=== PATIENT | female | born 1950 | race Caucasian/White ===

== ENCOUNTER 2020-10-19 17:12 | Emergency (ER) | payer OTHER, MEDICAID ==
[~2020-10-19] VITALS: Ht 172.7 cm; Wt 90.7 kg
[~2020-10-19 17:12] MED LIST: ASCO-339 PO; IBUP-1969 PO; LEVO125T8 PO; LOP600 PO; LORA10TA7 PO; MOM PO; OMEG500C3 PO; TOLT4CAP14 PO; VALS160T2 PO
[2020-10-19 17:19] VITALS: BP_SYST 160
[2020-10-19 18:06] LABS: BASOPHILS # (AUTO) 0.1 K/uL (0.0-0.2); BASOPHILS % (AUTO) 0.8 % (0.0-2.0); EOSINOPHILS # (AUTO) 0.3 K/uL (0.0-0.4); EOSINOPHILS % (AUTO) 2.8 % (0.0-4.0); HEMATOCRIT 40.1 % (36-48); HEMOGLOBIN 13.4 g/dL (12.0-16.0); LYMPHOCYTES # (AUTO) 1.7 K/uL (1.0-5.5); MEAN CORPUSCULAR HEMOGLOBIN 30 pg (27-31); MEAN CORPUSCULAR HGB CONC 34 % (32-36); MEAN CORPUSCULAR VOLUME 90 fL (79.0-98.0); MONOCYTES # (AUTO) 0.8 K/uL (0.0-1.0); MONOCYTES % (AUTO) 7.1 % (1.7-9.3); NEUTROPHILS % (AUTO) 73.3 % (40.0-70.0); PLATELET COUNT (AUTO) 297 K/uL (130-430); RED BLOOD CELL COUNT(AUTO) 4.47 MIL/uL (4.2-6.2); RED CELL DISTRIBUTION WIDTH 13.1 % (9.0-15.0); WHITE BLOOD COUNT (AUTO) 10.9 K/uL (4.8-10.8)
[2020-10-19 18:26] LABS: CREATININE 0.95 mg/dL (0.55-1.30); POTASSIUM 4.2 mmol/L (3.5-5.1)
[2020-10-19 18:32] LABS: ALBUMIN 3.7 g/dL (3.4-4.8); TOTAL BILIRUBIN 0.2 mg/dL (0.0-1.0)
[2020-10-19] MEDS ORDERED: KETOROLAC TROMETHAMINE 30 MG VIAL IM ONE (19:15)
[2020-10-19 19:55] LABS: BILIRUBIN,URINE NEGATIVE (NEGATIVE); BLOOD, URINE NEGATIVE (NEGATIVE); COLOR,URINE YELLOW (YELLOW); GLUCOSE,URINE NEGATIVE (NEGATIVE); KETONES,URINE NEGATIVE (NEGATIVE); LEUKOCYTE ESTERASE ,URINE 2+ (NEGATIVE); NITRITE, URINE NEGATIVE (NEGATIVE); PH,URINE 6.5 (5.0-8.0); PROTEIN URINE NEGATIVE (NEGATIVE); UROBILINOGEN,URINE 0.2 (0.2-1.0)
[2020-10-19 20:05] LABS: CLARITY/URINE HAZY (CLEAR)
[2020-10-19 20:06] LABS: BACTERIA,URINE MANY /HPF (None Seen); CALCIUM OXALATE CRYSTALS,UR None Seen /HPF (None Seen); CALCIUM PHOSPHATE CRYSTALS,UR None Seen /HPF (None Seen); COARSE GRANULAR CASTS,URINE None Seen /LPF (None Seen); FINE GRANULAR CASTS,URINE None Seen /LPF (None Seen); HYALINE CASTS, URINE None Seen /LPF (None Seen); MUCUS,URINE None Seen /LPF (None Seen); OTHER CASTS, URINE None Seen /LPF (None Seen); OTHER CRYSTALS,URINE None Seen /HPF (None Seen); RBC,URINE 0-3 /HPF (0-3); TRICHOMONAS,URINE None Seen /HPF (None Seen); TRIPLE PHOSPHATE CRYSTAL,UR None Seen /HPF (None Seen); URIC ACID CRYSTALS,URINE None Seen /HPF (None Seen); URINE AMORPHOUS PHOSPHATES None Seen /HPF (None Seen); URINE AMORPHOUS URATE None Seen /HPF (None Seen); WAXY CASTS,URINE None Seen /LPF (None Seen); YEAST,URINE None Seen /HPF (None Seen)
[2020-10-19] MEDS ORDERED: CIPROFLOXACIN HCL 500 MG TABLET PO ONE (20:15)
[2020-10-19] MEDS ORDERED: CIPR500T5 PO (20:41)
[2020-10-19] MEDS ORDERED: IBUP-1969 PO (20:41)
[2020-10-19 23:00] VITALS: BP_SYST 111
== END 2020-10-19 23:00 | disposition home or self-care (01) ==
LOC: SED 17:12
DX: S79.912A Unspecified injury of left hip, initial encounter (principal); N39.0 Urinary tract infection, site not specified; R53.1 Weakness; Z88.0 Allergy status to penicillin; Z88.8 Allergy status to other drugs, medicaments and biological substances; Z79.899 Other long term (current) drug therapy; W18.39XA Other fall on same level, initial encounter; Y93.89 Activity, other specified; Y92.89 Other specified places as the place of occurrence of the external cause; Y99.8 Other external cause status
CPT/HCPCS: 36415; 71045; 72170; 73552; 80053; 81000; 82550; 84484; 85025; 87086; 93005; 96372; 99285; J1885; J7030

== ENCOUNTER 2022-08-09 10:09 | Inpatient (IN) | payer OTHER, MEDICAID ==
[~2022-08-09] VITALS: Ht 154.9 cm; Wt 103.9 kg
[~2022-08-09 10:09] MED LIST changes: +CIPR500T5 PO; -TOLT4CAP14 PO; +TOLT4CAP28 PO
[2022-08-09 10:28] VITALS: BP_SYST 230
[2022-08-09 11:23] LABS: BILIRUBIN,URINE NEGATIVE (NEGATIVE); CLARITY/URINE CLEAR (CLEAR); COLOR,URINE YELLOW (YELLOW); GLUCOSE,URINE NEGATIVE (NEGATIVE); KETONES,URINE NEGATIVE (NEGATIVE); LEUKOCYTE ESTERASE ,URINE 1+ (NEGATIVE); NITRITE, URINE NEGATIVE (NEGATIVE); PH,URINE 6.5 (5.0-8.0); PROTEIN URINE 2+ (NEGATIVE); UROBILINOGEN,URINE 0.2 (0.2-1.0)
[2022-08-09 11:30] LABS: BASOPHILS % (AUTO) 0.3 % (0.0-2.0); EOSINOPHILS # (AUTO) 0.3 K/uL (0.0-0.4); HEMATOCRIT 39.9 % (36-48); HEMOGLOBIN 12.9 g/dL (12.0-16.0); LYMPHOCYTES # (AUTO) 1.5 K/uL (1.0-5.5); LYMPHOCYTES % (AUTO) 12.5 % (20.5-51.5); MEAN CORPUSCULAR HEMOGLOBIN 29 pg (27-31); MEAN CORPUSCULAR HGB CONC 32 % (32-36); MEAN CORPUSCULAR VOLUME 90 fL (79.0-98.0); MONOCYTES # (AUTO) 0.8 K/uL (0.0-1.0); MONOCYTES % (AUTO) 7.2 % (1.7-9.3); PLATELET COUNT (AUTO) 320 K/uL (130-430); RED BLOOD CELL COUNT(AUTO) 4.43 MIL/uL (4.2-6.2); RED CELL DISTRIBUTION WIDTH 15.5 % (9.0-15.0); WHITE BLOOD COUNT (AUTO) 11.7 K/uL (4.8-10.8)
[2022-08-09 11:31] LABS: BLOOD, URINE TRACE (NEGATIVE)
[2022-08-09 11:37] LABS: PROTHROMBIN TIME 10.5 SECS (9.5-12.5)
[2022-08-09 11:42] LABS: BACTERIA,URINE MANY /HPF (None Seen); MUCUS,URINE None Seen /LPF (None Seen); RBC,URINE 0-3 /HPF (0-3)
[2022-08-09 11:42] LABS: ALANINE AMINOTRANSFERASE 22 U/L (12-78); ANION GAP 5 (5-15); ASPARTATE AMINOTRANSFERASE 13 U/L (10-37); C-REACTIVE PROTEIN QUANT 1.1 mg/dL (0-0.5); CALCIUM 9.1 mg/dL (8.4-11.0); CHLORIDE 106 mmol/L (98-107); GLUCOSE 74 mg/dL (70-99); TOTAL BILIRUBIN 0.3 mg/dL (0.0-1.0); UREA NITROGEN, BLOOD 38 mg/dL (8-21)
[2022-08-09] MEDS ORDERED: FUROSEMIDE 40 MG/4 ML VIAL IVP ONE (12:30)
[2022-08-09] MEDS ORDERED: cefTRIAXone 1 GM in D5W 50 ML IV ONE (12:30)
[2022-08-09] MEDS ORDERED: OXIC30CR2 TP (12:52)
[2022-08-09] MEDS ORDERED: DIFL60OI TP (12:52)
[2022-08-09] MEDS ORDERED: cefTRIAXone 1 GM VIAL ONE (13:21)
[2022-08-09 14:10] VITALS: BP_SYST 139
[2022-08-09] MEDS ORDERED: MUPIROCIN 2% TOPICAL OINTMENT 22 GM NS PRN (15:00)
[2022-08-09] MEDS ORDERED: ACETAMINOPHEN 325 MG TABLET PO PRN (15:00)
[2022-08-09] MEDS ORDERED: DOCUSATE SODIUM 100 MG CAPSULE PO PRN (15:00)
[2022-08-09] MEDS ORDERED: IPRATROPIUM/ALBUTEROL SULFATE 3 ML AMPUL.NEB (DUONEB) INH PRN (15:00)
[2022-08-09] MEDS ORDERED: POTASSIUM CHLORIDE 20 MEQ TAB.PRT.SR PO PRN (15:00)
[2022-08-09] MEDS ORDERED: ONDANSETRON HCL 4 MG/2 ML VIAL IVP PRN (15:00)
[2022-08-09] MEDS ORDERED: LORazepam 2 MG/ML VIAL IVP PRN (15:00)
[2022-08-09] MEDS ORDERED: MORPHINE 2 MG/ML INJ. SYRINGE IVP PRN ×2 (15:00)
[2022-08-09] MEDS ORDERED: MAGNESIUM SULFATE 50 ML IV PRN (15:00)
[2022-08-09] MEDS ORDERED: NALOXONE HCL 0.4 MG/ML AMP (NARCAN) IVP PRN ×2 (15:00)
[2022-08-09] MEDS: NACL 0.9% 1,000 ML IV SCH (16:16)
[2022-08-09 17:20] VITALS: BP_SYST 139
[2022-08-09 20:00] VITALS: BP_SYST 103
[2022-08-09] MEDS: TOLTERODINE TARTRATE 4 MG PO SCH (21:00)
[2022-08-09] MEDS: metroNIDAZOLE 500 mg/NS 100 ML IV SCH (22:05)
[2022-08-09] MEDS: HEPARIN SODIUM,PORCINE 5,000 UNITS/ML VIAL SUBCUT SCH (22:07)
[2022-08-10] VITALS: BP_SYST 129
[2022-08-10 06:37] LABS: BASOPHILS # (AUTO) 0.1 K/uL (0.0-0.2); BASOPHILS % (AUTO) 0.6 % (0.0-2.0); EOSINOPHILS # (AUTO) 0.4 K/uL (0.0-0.4); HEMATOCRIT 36.4 % (36-48); HEMOGLOBIN 11.4 g/dL (12.0-16.0); LYMPHOCYTES # (AUTO) 1.6 K/uL (1.0-5.5); LYMPHOCYTES % (AUTO) 15.1 % (20.5-51.5); MEAN CORPUSCULAR HEMOGLOBIN 29 pg (27-31); MEAN CORPUSCULAR HGB CONC 31 % (32-36); MEAN CORPUSCULAR VOLUME 93 fL (79.0-98.0); MONOCYTES # (AUTO) 0.9 K/uL (0.0-1.0); MONOCYTES % (AUTO) 8.9 % (1.7-9.3); NEUTROPHILS # (AUTO) 7.5 K/uL (1.8-7.7); NEUTROPHILS % (AUTO) 71.4 % (40.0-70.0); PLATELET COUNT (AUTO) 283 K/uL (130-430); RED BLOOD CELL COUNT(AUTO) 3.93 MIL/uL (4.2-6.2); RED CELL DISTRIBUTION WIDTH 15.9 % (9.0-15.0); WHITE BLOOD COUNT (AUTO) 10.5 K/uL (4.8-10.8)
[2022-08-10 06:38] LABS: ANION GAP 10 (5-15); CALCIUM 8.1 mg/dL (8.4-11.0); CHLORIDE 108 mmol/L (98-107); CREATININE 2.12 mg/dL (0.55-1.30); GLUCOSE 88 mg/dL (70-99); UREA NITROGEN, BLOOD 53 mg/dL (8-21)
[2022-08-10] MEDS: LEVOTHYROXINE SODIUM 0.125 MG TABLET PO SCH (07:00)
[2022-08-10] MEDS: metroNIDAZOLE 500 mg/NS 100 ML IV SCH ×3 (07:01→21:49)
[2022-08-10] MEDS: HEPARIN SODIUM,PORCINE 5,000 UNITS/ML VIAL SUBCUT SCH ×2 (08:58→21:56)
[2022-08-10] MEDS: NACL 0.9% 1,000 ML IV SCH ×2 (11:05→21:57)
[2022-08-10 11:29] VITALS: BP_SYST 123
[2022-08-10] MEDS ORDERED: SODIUM POLYSTYRENE SULFONATE 15 GM/60 ML UDBTL PO ONE (16:30)
[2022-08-10 16:59] VITALS: BP_SYST 133
[2022-08-10 20:00] VITALS: BP_SYST 140
[2022-08-10] MEDS: TOLTERODINE TARTRATE 4 MG PO SCH (21:00)
[2022-08-10] MEDS: ZOLPIDEM TARTRATE 5 MG TABLET PO PRN (21:57)
[2022-08-11] VITALS: BP_SYST 115
[2022-08-11] MEDS: metroNIDAZOLE 500 mg/NS 100 ML IV SCH ×3 (06:05→21:15)
[2022-08-11] MEDS: LEVOTHYROXINE SODIUM 0.125 MG TABLET PO SCH (06:37)
[2022-08-11 08:00] VITALS: BP_SYST 124
[2022-08-11] MEDS: HEPARIN SODIUM,PORCINE 5,000 UNITS/ML VIAL SUBCUT SCH ×2 (08:39→21:09)
[2022-08-11] MEDS: NACL 0.9% 1,000 ML IV SCH (11:05)
[2022-08-11 12:25] VITALS: BP_SYST 111
[2022-08-11 14:49] LABS: BASOPHILS # (AUTO) 0.1 K/uL (0.0-0.2); BASOPHILS % (AUTO) 0.6 % (0.0-2.0); EOSINOPHILS # (AUTO) 0.2 K/uL (0.0-0.4); HEMATOCRIT 33.8 % (36-48); HEMOGLOBIN 10.8 g/dL (12.0-16.0); LYMPHOCYTES # (AUTO) 1.2 K/uL (1.0-5.5); LYMPHOCYTES % (AUTO) 11.5 % (20.5-51.5); MEAN CORPUSCULAR HEMOGLOBIN 29 pg (27-31); MEAN CORPUSCULAR HGB CONC 32 % (32-36); MEAN CORPUSCULAR VOLUME 91 fL (79.0-98.0); MONOCYTES % (AUTO) 9.9 % (1.7-9.3); NEUTROPHILS # (AUTO) 7.8 K/uL (1.8-7.7); PLATELET COUNT (AUTO) 264 K/uL (130-430); RED CELL DISTRIBUTION WIDTH 15.2 % (9.0-15.0); WHITE BLOOD COUNT (AUTO) 10.3 K/uL (4.8-10.8)
[2022-08-11 15:21] LABS: ALANINE AMINOTRANSFERASE 16 U/L (12-78); ALBUMIN 2.4 g/dL (3.4-4.8); ANION GAP 6 (5-15); ASPARTATE AMINOTRANSFERASE 10 U/L (10-37); CALCIUM 8.2 mg/dL (8.4-11.0); CHLORIDE 106 mmol/L (98-107); CHOLESTEROL 153 mg/dL (<200); CREATININE 2.04 mg/dL (0.55-1.30); FREE T4 (FREE THYROXINE) 1.1 ng/dL (0.6-1.6); GLUCOSE 109 mg/dL (70-99); HDL CHOLESTEROL 46 mg/dL (>55); THYROID STIMULATING HORMONE 0.24 uIu/mL (0.34-4.82); TOTAL BILIRUBIN 0.2 mg/dL (0.0-1.0); TRIGLYCERIDES 78 mg/dL (30-150); UREA NITROGEN, BLOOD 64 mg/dL (8-21)
[2022-08-11 17:10] VITALS: BP_SYST 110
[2022-08-11] MEDS: POLYETHYLENE GLYCOL 3350, 17 GM/ POWD.PACK PO SCH (18:15)
[2022-08-11 20:03] VITALS: BP_SYST 117
[2022-08-11] MEDS: TOLTERODINE TARTRATE 4 MG PO SCH (21:00)
[2022-08-11] MEDS: ZOLPIDEM TARTRATE 5 MG TABLET PO PRN (21:02)
[2022-08-12 03:32] VITALS: BP_SYST 128
[2022-08-12] MEDS: metroNIDAZOLE 500 mg/NS 100 ML IV SCH ×3 (05:57→22:26)
[2022-08-12] MEDS: LEVOTHYROXINE SODIUM 0.125 MG TABLET PO SCH (06:11)
[2022-08-12 08:00] VITALS: BP_SYST 144
[2022-08-12 08:04] LABS: BASOPHILS % (AUTO) 0.2 % (0.0-2.0); EOSINOPHILS # (AUTO) 0.1 K/uL (0.0-0.4); EOSINOPHILS % (AUTO) 1.1 % (0.0-4.0); HEMATOCRIT 34.5 % (36-48); HEMOGLOBIN 10.8 g/dL (12.0-16.0); LYMPHOCYTES # (AUTO) 0.9 K/uL (1.0-5.5); LYMPHOCYTES % (AUTO) 8.3 % (20.5-51.5); MEAN CORPUSCULAR HEMOGLOBIN 29 pg (27-31); MEAN CORPUSCULAR HGB CONC 31 % (32-36); MEAN CORPUSCULAR VOLUME 91 fL (79.0-98.0); MONOCYTES # (AUTO) 0.9 K/uL (0.0-1.0); NEUTROPHILS # (AUTO) 9.1 K/uL (1.8-7.7); NEUTROPHILS % (AUTO) 82.4 % (40.0-70.0); PLATELET COUNT (AUTO) 268 K/uL (130-430); RED BLOOD CELL COUNT(AUTO) 3.78 MIL/uL (4.2-6.2)
[2022-08-12 08:12] LABS: ALANINE AMINOTRANSFERASE 15 U/L (12-78); ALBUMIN 2.4 g/dL (3.4-4.8); ANION GAP 8 (5-15); ASPARTATE AMINOTRANSFERASE 24 U/L (10-37); CALCIUM 8.8 mg/dL (8.4-11.0); CHLORIDE 105 mmol/L (98-107); CREATININE 1.19 mg/dL (0.55-1.30); GLUCOSE 106 mg/dL (70-99); TOTAL BILIRUBIN 0.4 mg/dL (0.0-1.0); UREA NITROGEN, BLOOD 61 mg/dL (8-21)
[2022-08-12] MEDS: HEPARIN SODIUM,PORCINE 5,000 UNITS/ML VIAL SUBCUT SCH ×2 (08:53→22:31)
[2022-08-12] MEDS: POLYETHYLENE GLYCOL 3350, 17 GM/ POWD.PACK PO SCH (08:54)
[2022-08-12 08:59] VITALS: BP_SYST 144
[2022-08-12] MEDS ORDERED: FUROSEMIDE 20 MG/2 ML VIAL IVP ONE (10:15)
[2022-08-12] MEDS ORDERED: SODIUM POLYSTYRENE SULFONATE 15 GM/60 ML UDBTL PO ONE (10:15)
[2022-08-12] MEDS: cefTRIAXone 1 GM in D5W 50 ML IV SCH (10:16)
[2022-08-12 12:08] VITALS: BP_SYST 132
[2022-08-12 12:59] LABS: ANION GAP 8 (5-15); CALCIUM 8.9 mg/dL (8.4-11.0); CHLORIDE 104 mmol/L (98-107); GLUCOSE 171 mg/dL (70-99); UREA NITROGEN, BLOOD 61 mg/dL (8-21)
[2022-08-12 16:00] VITALS: BP_SYST 137
[2022-08-12 20:00] VITALS: BP_SYST 114
[2022-08-12] MEDS: TOLTERODINE TARTRATE 4 MG PO SCH (21:00)
[2022-08-13 01:00] VITALS: BP_SYST 139
[2022-08-13 04:57] LABS: ANION GAP 9 (5-15); CALCIUM 8.5 mg/dL (8.4-11.0); CHLORIDE 108 mmol/L (98-107); CREATININE 1.15 mg/dL (0.55-1.30); GLUCOSE 105 mg/dL (70-99); UREA NITROGEN, BLOOD 59 mg/dL (8-21)
[2022-08-13 06:11] LABS: BASOPHILS % (AUTO) 0.2 % (0.0-2.0); EOSINOPHILS # (AUTO) 0.3 K/uL (0.0-0.4); HEMATOCRIT 33.8 % (36-48); HEMOGLOBIN 10.7 g/dL (12.0-16.0); LYMPHOCYTES # (AUTO) 1.1 K/uL (1.0-5.5); LYMPHOCYTES % (AUTO) 9.7 % (20.5-51.5); MEAN CORPUSCULAR HEMOGLOBIN 29 pg (27-31); MEAN CORPUSCULAR HGB CONC 32 % (32-36); MEAN CORPUSCULAR VOLUME 91 fL (79.0-98.0); MONOCYTES # (AUTO) 0.9 K/uL (0.0-1.0); MONOCYTES % (AUTO) 8.4 % (1.7-9.3); NEUTROPHILS # (AUTO) 8.8 K/uL (1.8-7.7); NEUTROPHILS % (AUTO) 78.7 % (40.0-70.0); PLATELET COUNT (AUTO) 257 K/uL (130-430); RED BLOOD CELL COUNT(AUTO) 3.73 MIL/uL (4.2-6.2); RED CELL DISTRIBUTION WIDTH 15.2 % (9.0-15.0); WHITE BLOOD COUNT (AUTO) 11.1 K/uL (4.8-10.8)
[2022-08-13] MEDS: metroNIDAZOLE 500 mg/NS 100 ML IV SCH ×2 (06:13→14:08)
[2022-08-13] MEDS: LEVOTHYROXINE SODIUM 0.125 MG TABLET PO SCH (06:13)
[2022-08-13 08:00] VITALS: BP_SYST 130
[2022-08-13] MEDS ORDERED: ROCPM1 IV (09:45)
[2022-08-13] MEDS: HEPARIN SODIUM,PORCINE 5,000 UNITS/ML VIAL SUBCUT SCH (10:08)
[2022-08-13] MEDS: POLYETHYLENE GLYCOL 3350, 17 GM/ POWD.PACK PO SCH (10:09)
[2022-08-13] MEDS: cefTRIAXone 1 GM in D5W 50 ML IV SCH (10:20)
[2022-08-13] MEDS ORDERED: AZIT500T3 PO (10:36)
[2022-08-13 11:30] VITALS: BP_SYST 119
[2022-08-13 15:22] VITALS: BP_SYST 135
[2022-08-13 15:47] VITALS: BP_SYST 135
== END 2022-08-13 17:40 | DRG 177 ==
LOC: SED 10:09 → STU 12:42
PROVIDERS: ADMIT General Practice; ATTEND General Practice
DX: J69.0 Pneumonitis due to inhalation of food and vomit (principal); I50.43 Acute on chronic combined systolic (congestive) and diastolic (congestive) heart failure; N17.0 Acute kidney failure with tubular necrosis; L03.116 Cellulitis of left lower limb; Z68.41 Body mass index [BMI] 40.0-44.9, adult; N39.0 Urinary tract infection, site not specified; I11.0 Hypertensive heart disease with heart failure; Z96.651 Presence of right artificial knee joint; E78.5 Hyperlipidemia, unspecified; E03.9 Hypothyroidism, unspecified; E66.01 Morbid (severe) obesity due to excess calories; Z20.822 Contact with and (suspected) exposure to COVID-19; Z88.1 Allergy status to other antibiotic agents; Z88.8 Allergy status to other drugs, medicaments and biological substances; Z79.899 Other long term (current) drug therapy
CPT/HCPCS: 36415; 71045; 76770; 80048; 80053; 80061; 81000; 82550; 83037; 83605; 83735; 83880; 84439; 84443; 84484; 85025; 85379; 85610-TC; 85730-TC; 86140; 87040; 87086; 93005; 93306; 93970; 94640; 94760; 96365; 97116-GP; 97163-GP; 99285; G0378; J0696; J1644; J1940; J1956; J3490; J7060

== ENCOUNTER 2023-01-13 12:23 | Inpatient (IN) | payer OTHER, MEDICAID ==
[~2023-01-13] VITALS: Ht 154.9 cm; Wt 122.5 kg
[~2023-01-13 12:23] MED LIST changes: +AZIT500T3 PO; -CIPR500T5 PO; -IBUP-1969 PO; -LORA10TA7 PO; -MOM PO; -OMEG500C3 PO; +ROCPM1 IV; -VALS160T2 PO
[2023-01-13 12:30] VITALS: BP_SYST 183; PULSE 80; RESP 18; TEMP 97.7; O2SAT 96
[2023-01-13] MEDS ORDERED: ALBUTEROL SULFATE 0.083% 2.5 MG/3 ML VIAL.NEB INH ONE ×2 (12:30→12:35)
[2023-01-13] MEDS ORDERED: IPRATROPIUM BROM 0.5 MG/2.5 ML VIAL.NEB (ATROVENT) INH ONE ×2 (12:30→12:35)
[2023-01-13 13:02] LABS: BASOPHILS % (AUTO) 0.4 % (0.0-2.0); EOSINOPHILS # (AUTO) 0.4 K/uL (0.0-0.4); EOSINOPHILS % (AUTO) 3.2 % (0.0-4.0); HEMATOCRIT 44.6 % (36-48); HEMOGLOBIN 13.5 g/dL (12.0-16.0); LYMPHOCYTES # (AUTO) 1.4 K/uL (1.0-5.5); MEAN CORPUSCULAR HEMOGLOBIN 27 pg (27-31); MEAN CORPUSCULAR HGB CONC 30 % (32-36); MEAN CORPUSCULAR VOLUME 87 fL (79.0-98.0); MONOCYTES % (AUTO) 9.2 % (1.7-9.3); NEUTROPHILS # (AUTO) 8.2 K/uL (1.8-7.7); NEUTROPHILS % (AUTO) 74.2 % (40.0-70.0); PLATELET COUNT (AUTO) 319 K/uL (130-430); RED BLOOD CELL COUNT(AUTO) 5.11 MIL/uL (4.2-6.2); RED CELL DISTRIBUTION WIDTH 17.6 % (9.0-15.0)
[2023-01-13 13:21] LABS: INR 1.1 (0.8-1.2); PROTHROMBIN TIME 11.3 SECS (9.5-12.5)
[2023-01-13 13:23] LABS: ALANINE AMINOTRANSFERASE 7 U/L (12-78); ALBUMIN 2.7 g/dL (3.4-4.8); ANION GAP 5 (5-15); ASPARTATE AMINOTRANSFERASE 13 U/L (10-37); CARBON DIOXIDE 29 mmol/L (23-29); CHLORIDE 104 mmol/L (98-107); CREATININE 0.97 mg/dL (0.55-1.30); GLUCOSE 82 mg/dL (74-106); POTASSIUM 4.3 mmol/L (3.5-5.1); SODIUM SERUM 138 mmol/L (136-145); TOTAL BILIRUBIN 0.3 mg/dL (0.0-1.0); TOTAL PROTEIN, SERUM 7.9 g/dL (6.4-8.3); UREA NITROGEN, BLOOD 1 mg/dL (8-21)
[2023-01-13 13:37] LABS: CREATINE KINASE, TOTAL 31 U/L (26-192)
[2023-01-13 13:40] LABS: COVID19 ANTIGEN SOFIA FIA NEGATIVE (NEGATIVE)
[2023-01-13 13:40] LABS: CALCIUM 8.7 mg/dL (8.4-11.0)
[2023-01-13 13:41] LABS: INFLUENZA TYPE A negative (NEGATIVE); INFLUENZA TYPE B NEGATIVE (NEGATIVE)
[2023-01-13] MEDS ORDERED: MULT-1117 PO (16:00)
[2023-01-13] MEDS ORDERED: IPRATROPIUM/ALBUTEROL SULFATE 3 ML AMPUL.NEB (DUONEB) INH ONE (16:30)
[2023-01-13] MEDS ORDERED: ONDANSETRON HCL 4 MG/2 ML VIAL IVP PRN (16:45)
[2023-01-13] MEDS ORDERED: HYDROcodone/ACETAMIN 10-325 MG TAB PO PRN (16:45)
[2023-01-13] MEDS ORDERED: NALOXONE HCL 0.4 MG/ML AMP (NARCAN) IVP PRN ×2 (16:45)
[2023-01-13] MEDS ORDERED: ACETAMINOPHEN 325 MG TABLET PO PRN (17:00)
[2023-01-13] MEDS ORDERED: FUROSEMIDE 20 MG/2 ML VIAL IVP ONE (17:00)
[2023-01-13] MEDS: HYDROcodone/ACETAMIN 5-325 MG TAB (NORCO/ VICODIN) PO PRN (17:40)
[2023-01-13] MEDS: GEMFIBROZIL 600 MG TABLET (LOPID) PO SCH (19:43)
[2023-01-13] MEDS ORDERED: TOLTERODINE TARTRATE 4 MG PO SCH (21:00)
[2023-01-13] MEDS: oxyBUTYnin chloride 5 MG TABLET PO SCH (21:51)
[2023-01-13] MEDS: NORMAL SALINE 5 ML DISP.SYRIN IVF SCH (21:59)
[2023-01-14] VITALS (27 sets, daily range): BP systolic 95–142; PULSE 61–92; RESP 18–27; TEMP 97.6–98.4; O2SAT 90–98
[2023-01-14] MEDS: LEVOTHYROXINE SODIUM 0.125 MG TABLET PO SCH (05:22)
[2023-01-14] MEDS: GEMFIBROZIL 600 MG TABLET (LOPID) PO SCH ×2 (05:22→17:00)
[2023-01-14] MEDS: NORMAL SALINE 5 ML DISP.SYRIN IVF SCH ×3 (05:24→23:07)
[2023-01-14 05:31] LABS: BASOPHILS % (AUTO) 0.4 % (0.0-2.0); EOSINOPHILS # (AUTO) 0.3 K/uL (0.0-0.4); EOSINOPHILS % (AUTO) 3.1 % (0.0-4.0); HEMATOCRIT 42.3 % (36-48); LYMPHOCYTES % (AUTO) 10.2 % (20.5-51.5); MEAN CORPUSCULAR HEMOGLOBIN 27 pg (27-31); MEAN CORPUSCULAR HGB CONC 31 % (32-36); MEAN CORPUSCULAR VOLUME 87 fL (79.0-98.0); MONOCYTES # (AUTO) 0.8 K/uL (0.0-1.0); MONOCYTES % (AUTO) 8.1 % (1.7-9.3); NEUTROPHILS # (AUTO) 7.9 K/uL (1.8-7.7); NEUTROPHILS % (AUTO) 78.2 % (40.0-70.0); PLATELET COUNT (AUTO) 321 K/uL (130-430); RED BLOOD CELL COUNT(AUTO) 4.85 MIL/uL (4.2-6.2); RED CELL DISTRIBUTION WIDTH 17.6 % (9.0-15.0); WHITE BLOOD COUNT (AUTO) 10.1 K/uL (4.8-10.8)
[2023-01-14 06:23] LABS: ALANINE AMINOTRANSFERASE 8 U/L (12-78); ALBUMIN 2.5 g/dL (3.4-4.8); ANION GAP 8 (5-15); ASPARTATE AMINOTRANSFERASE 17 U/L (10-37); CALCIUM 8.6 mg/dL (8.4-11.0); CARBON DIOXIDE 28 mmol/L (23-29); CHLORIDE 106 mmol/L (98-107); CREATININE 0.94 mg/dL (0.55-1.30); GLUCOSE 76 mg/dL (74-106); PHOSPHORUS 5.1 mg/dL (2.7-4.5); POTASSIUM 4.4 mmol/L (3.5-5.1); SODIUM SERUM 142 mmol/L (136-145); TOTAL BILIRUBIN 0.4 mg/dL (0.0-1.0); TOTAL PROTEIN, SERUM 7.6 g/dL (6.4-8.3); UREA NITROGEN, BLOOD 28 mg/dL (8-21)
[2023-01-14] MEDS: MULTIVITAMINS TAB 1 TABLET PO SCH (09:00)
[2023-01-14] MEDS: oxyBUTYnin chloride 5 MG TABLET PO SCH ×3 (09:00→21:51)
[2023-01-14] MEDS: ASCORBIC ACID 500 MG TABLET PO SCH (09:00)
[2023-01-14] MEDS ORDERED: FUROSEMIDE 40 MG/4 ML VIAL IVP ONE (09:45)
[2023-01-14 09:47] LABS: BLOOD GAS BASE EXCESS 0.7 mmol/L (-3.0-3.0); BLOOD GAS HCO3 30.1 mmol/L (21.0-27.0)
[2023-01-14 09:50] LABS: ABG O2 SAT% ESTIMATE 85.5 % (94.0-100.0); ALLEN'S TEST POSITIVE (P); BLOOD GAS PCO2 70.2 mmHg (35.0-45.0); BLOOD GAS PO2 59.2 mmHg (75.0-100.0)
[2023-01-14 16:33] LABS: ABG O2 SAT% ESTIMATE 94.1 % (94.0-100.0); BLOOD GAS BASE EXCESS -3.2 mmol/L (-3.0-3.0); BLOOD GAS HCO3 26.2 mmol/L (21.0-27.0); BLOOD GAS PO2 84.9 mmHg (75.0-100.0)
[2023-01-14 16:42] LABS: ALLEN'S TEST POSITIVE (P); BLOOD GAS PCO2 66.2 mmHg (35.0-45.0); BLOOD GAS PH 7.215 (7.350-7.450)
[2023-01-14] MEDS: FUROSEMIDE 40 MG/4 ML VIAL IVP SCH (17:20)
[2023-01-15] VITALS (31 sets, daily range): BP systolic 92–139; PULSE 56–66; RESP 14–28; TEMP 97–98.9; O2SAT 40–95
[2023-01-15 04:50] LABS: BASOPHILS % (AUTO) 0.2 % (0.0-2.0); EOSINOPHILS # (AUTO) 0.1 K/uL (0.0-0.4); EOSINOPHILS % (AUTO) 1.2 % (0.0-4.0); HEMATOCRIT 44.6 % (36-48); LYMPHOCYTES # (AUTO) 0.7 K/uL (1.0-5.5); LYMPHOCYTES % (AUTO) 6.7 % (20.5-51.5); MEAN CORPUSCULAR HEMOGLOBIN 27 pg (27-31); MEAN CORPUSCULAR HGB CONC 31 % (32-36); MEAN CORPUSCULAR VOLUME 86 fL (79.0-98.0); MONOCYTES # (AUTO) 0.7 K/uL (0.0-1.0); NEUTROPHILS # (AUTO) 8.8 K/uL (1.8-7.7); NEUTROPHILS % (AUTO) 84.9 % (40.0-70.0); PLATELET COUNT (AUTO) 331 K/uL (130-430); RED BLOOD CELL COUNT(AUTO) 5.17 MIL/uL (4.2-6.2); RED CELL DISTRIBUTION WIDTH 17.1 % (9.0-15.0); WHITE BLOOD COUNT (AUTO) 10.4 K/uL (4.8-10.8)
[2023-01-15 04:56] LABS: ERYTHROCYTE SEDIMENTATION RATE 74 MM/HR (0-20)
[2023-01-15 05:22] LABS: ANION GAP 7 (5-15); CALCIUM 8.6 mg/dL (8.4-11.0); CARBON DIOXIDE 30 mmol/L (23-29); CHLORIDE 106 mmol/L (98-107); CREATININE 0.96 mg/dL (0.55-1.30); GLUCOSE 103 mg/dL (74-106); POTASSIUM 3.9 mmol/L (3.5-5.1); SODIUM SERUM 143 mmol/L (136-145); UREA NITROGEN, BLOOD 33 mg/dL (8-21)
[2023-01-15] MEDS: NORMAL SALINE 5 ML DISP.SYRIN IVF SCH ×3 (06:29→21:46)
[2023-01-15] MEDS: FUROSEMIDE 40 MG/4 ML VIAL IVP SCH (06:29)
[2023-01-15 08:37] LABS: ABG O2 SAT% ESTIMATE 88.1 % (94.0-100.0); BLOOD GAS BASE EXCESS 2.5 mmol/L (-3.0-3.0); BLOOD GAS HCO3 30.2 mmol/L (21.0-27.0); BLOOD GAS PH 7.322 (7.350-7.450)
[2023-01-15 08:40] LABS: ALLEN'S TEST POSITIVE (P); BLOOD GAS PCO2 59.7 mmHg (35.0-45.0); BLOOD GAS PO2 59.2 mmHg (75.0-100.0)
[2023-01-15] MEDS: MULTIVITAMINS TAB 1 TABLET PO SCH (11:42)
[2023-01-15] MEDS: ASCORBIC ACID 500 MG TABLET PO SCH (11:43)
[2023-01-15] MEDS: LEVOTHYROXINE SODIUM 0.125 MG TABLET PO SCH (11:43)
[2023-01-15] MEDS: ENOXAPARIN SODIUM 40 MG/0.4 ML SYRINGE SUBCUT SCH (11:43)
[2023-01-15] MEDS: oxyBUTYnin chloride 5 MG TABLET PO SCH ×2 (11:43→21:42)
[2023-01-15] MEDS: GEMFIBROZIL 600 MG TABLET (LOPID) PO SCH ×2 (11:44→18:01)
[2023-01-15] MEDS: FUROSEMIDE 100 MG in D5W 90 ML IV SCH ×2 (12:42→21:46)
[2023-01-15] MEDS ORDERED: KCL 20 mEq in 100 mL (PREMIX) 100 ML IV ONE (16:09)
[2023-01-16] VITALS (27 sets, daily range): BP systolic 87–137; PULSE 52–74; RESP 15–36; TEMP 97.4–98.4; O2SAT 88–96
[2023-01-16 05:28] LABS: BASOPHILS % (AUTO) 0.1 % (0.0-2.0); EOSINOPHILS # (AUTO) 0.2 K/uL (0.0-0.4); EOSINOPHILS % (AUTO) 2.2 % (0.0-4.0); HEMATOCRIT 40.4 % (36-48); HEMOGLOBIN 12.7 g/dL (12.0-16.0); LYMPHOCYTES # (AUTO) 0.9 K/uL (1.0-5.5); LYMPHOCYTES % (AUTO) 8.4 % (20.5-51.5); MEAN CORPUSCULAR HEMOGLOBIN 27 pg (27-31); MEAN CORPUSCULAR HGB CONC 31 % (32-36); MEAN CORPUSCULAR VOLUME 86 fL (79.0-98.0); MONOCYTES % (AUTO) 10.2 % (1.7-9.3); NEUTROPHILS # (AUTO) 8.1 K/uL (1.8-7.7); NEUTROPHILS % (AUTO) 79.1 % (40.0-70.0); PLATELET COUNT (AUTO) 303 K/uL (130-430); RED BLOOD CELL COUNT(AUTO) 4.73 MIL/uL (4.2-6.2); WHITE BLOOD COUNT (AUTO) 10.3 K/uL (4.8-10.8)
[2023-01-16 05:41] LABS: ERYTHROCYTE SEDIMENTATION RATE 43 MM/HR (0-20)
[2023-01-16 05:55] LABS: ALANINE AMINOTRANSFERASE 8 U/L (12-78); ALBUMIN 2.2 g/dL (3.4-4.8); ANION GAP 9 (5-15); ASPARTATE AMINOTRANSFERASE 22 U/L (10-37); CALCIUM 8.6 mg/dL (8.4-11.0); CARBON DIOXIDE 32 mmol/L (23-29); CHLORIDE 103 mmol/L (98-107); CREATININE 1.41 mg/dL (0.55-1.30); GLUCOSE 95 mg/dL (74-106); POTASSIUM 3.6 mmol/L (3.5-5.1); SODIUM SERUM 144 mmol/L (136-145); TOTAL BILIRUBIN 0.5 mg/dL (0.0-1.0); TOTAL PROTEIN, SERUM 6.6 g/dL (6.4-8.3); UREA NITROGEN, BLOOD 51 mg/dL (8-21)
[2023-01-16] MEDS: NORMAL SALINE 5 ML DISP.SYRIN IVF SCH ×3 (07:05→20:41)
[2023-01-16] MEDS: LEVOTHYROXINE SODIUM 0.125 MG TABLET PO SCH (07:32)
[2023-01-16] MEDS: GEMFIBROZIL 600 MG TABLET (LOPID) PO SCH ×2 (07:32→16:37)
[2023-01-16] MEDS: ASCORBIC ACID 500 MG TABLET PO SCH (08:58)
[2023-01-16] MEDS: oxyBUTYnin chloride 5 MG TABLET PO SCH ×2 (08:58→20:41)
[2023-01-16] MEDS: MULTIVITAMINS TAB 1 TABLET PO SCH (08:59)
[2023-01-16] MEDS: ENOXAPARIN SODIUM 40 MG/0.4 ML SYRINGE SUBCUT SCH (09:00)
[2023-01-16] MEDS ORDERED: NS 500 ML IV ONE (10:30)
[2023-01-16 12:09] LABS: ABG O2 SAT% ESTIMATE 88.9 % (94.0-100.0); BLOOD GAS BASE EXCESS 5.4 mmol/L (-3.0-3.0); BLOOD GAS HCO3 32.9 mmol/L (21.0-27.0); BLOOD GAS PH 7.357 (7.350-7.450)
[2023-01-16 12:17] LABS: ALLEN'S TEST POSITIVE (P); BLOOD GAS PCO2 59.9 mmHg (35.0-45.0); BLOOD GAS PO2 59.1 mmHg (75.0-100.0)
[2023-01-17] VITALS (25 sets, daily range): BP systolic 97–145; PULSE 57–87; RESP 15–36; TEMP 97.3–98.8; O2SAT 91–96
[2023-01-17 04:57] LABS: BASOPHILS % (AUTO) 0.3 % (0.0-2.0); EOSINOPHILS # (AUTO) 0.4 K/uL (0.0-0.4); EOSINOPHILS % (AUTO) 3.2 % (0.0-4.0); HEMATOCRIT 37.3 % (36-48); HEMOGLOBIN 11.9 g/dL (12.0-16.0); LYMPHOCYTES # (AUTO) 0.9 K/uL (1.0-5.5); LYMPHOCYTES % (AUTO) 8.7 % (20.5-51.5); MEAN CORPUSCULAR HEMOGLOBIN 27 pg (27-31); MEAN CORPUSCULAR HGB CONC 32 % (32-36); MEAN CORPUSCULAR VOLUME 84 fL (79.0-98.0); MONOCYTES # (AUTO) 1.2 K/uL (0.0-1.0); MONOCYTES % (AUTO) 10.6 % (1.7-9.3); NEUTROPHILS # (AUTO) 8.4 K/uL (1.8-7.7); NEUTROPHILS % (AUTO) 77.2 % (40.0-70.0); PLATELET COUNT (AUTO) 299 K/uL (130-430); RED BLOOD CELL COUNT(AUTO) 4.44 MIL/uL (4.2-6.2); RED CELL DISTRIBUTION WIDTH 17.3 % (9.0-15.0); WHITE BLOOD COUNT (AUTO) 10.9 K/uL (4.8-10.8)
[2023-01-17 05:13] LABS: ALANINE AMINOTRANSFERASE 8 U/L (12-78); ALBUMIN 2.2 g/dL (3.4-4.8); ANION GAP 6 (5-15); ASPARTATE AMINOTRANSFERASE 18 U/L (10-37); CALCIUM 8.6 mg/dL (8.4-11.0); CARBON DIOXIDE 35 mmol/L (23-29); CHLORIDE 103 mmol/L (98-107); CREATININE 1.39 mg/dL (0.55-1.30); GLUCOSE 86 mg/dL (74-106); PHOSPHORUS 3.7 mg/dL (2.7-4.5); POTASSIUM 3.3 mmol/L (3.5-5.1); SODIUM SERUM 144 mmol/L (136-145); TOTAL BILIRUBIN 0.3 mg/dL (0.0-1.0); TOTAL PROTEIN, SERUM 6.5 g/dL (6.4-8.3); UREA NITROGEN, BLOOD 65 mg/dL (8-21)
[2023-01-17 05:22] LABS: ERYTHROCYTE SEDIMENTATION RATE 46 MM/HR (0-20)
[2023-01-17] MEDS: NORMAL SALINE 5 ML DISP.SYRIN IVF SCH ×3 (05:30→20:05)
[2023-01-17] MEDS: GEMFIBROZIL 600 MG TABLET (LOPID) PO SCH ×2 (05:31→18:17)
[2023-01-17] MEDS: LEVOTHYROXINE SODIUM 0.125 MG TABLET PO SCH (05:31)
[2023-01-17] MEDS: ENOXAPARIN SODIUM 40 MG/0.4 ML SYRINGE SUBCUT SCH (08:03)
[2023-01-17] MEDS: ASCORBIC ACID 500 MG TABLET PO SCH (08:03)
[2023-01-17] MEDS: MULTIVITAMINS TAB 1 TABLET PO SCH (08:03)
[2023-01-17] MEDS: oxyBUTYnin chloride 5 MG TABLET PO SCH ×2 (08:03→20:05)
[2023-01-17] MEDS ORDERED: KCL 20 mEq in 100 mL (PREMIX) 100 ML IV SCH (13:30)
[2023-01-17] MEDS ORDERED: POTASSIUM CHLORIDE 20 MEQ/PKT PACKET PO ONE (14:30)
[2023-01-17] MEDS: HYDROcodone/ACETAMIN 5-325 MG TAB (NORCO/ VICODIN) PO PRN (20:05)
[2023-01-18] VITALS (23 sets, daily range): BP systolic 90–166; PULSE 69–92; RESP 16–25; TEMP 97.1–98.8; O2SAT 89–93
[2023-01-18 05:08] LABS: ERYTHROCYTE SEDIMENTATION RATE 70 MM/HR (0-20)
[2023-01-18 05:22] LABS: BASOPHILS % (AUTO) 0.4 % (0.0-2.0); EOSINOPHILS # (AUTO) 0.3 K/uL (0.0-0.4); EOSINOPHILS % (AUTO) 3.6 % (0.0-4.0); HEMATOCRIT 38.7 % (36-48); HEMOGLOBIN 12.1 g/dL (12.0-16.0); LYMPHOCYTES # (AUTO) 1.1 K/uL (1.0-5.5); LYMPHOCYTES % (AUTO) 12.8 % (20.5-51.5); MEAN CORPUSCULAR HEMOGLOBIN 27 pg (27-31); MEAN CORPUSCULAR HGB CONC 31 % (32-36); MEAN CORPUSCULAR VOLUME 85 fL (79.0-98.0); MONOCYTES % (AUTO) 12.1 % (1.7-9.3); NEUTROPHILS # (AUTO) 6.2 K/uL (1.8-7.7); NEUTROPHILS % (AUTO) 71.1 % (40.0-70.0); PLATELET COUNT (AUTO) 297 K/uL (130-430); RED BLOOD CELL COUNT(AUTO) 4.54 MIL/uL (4.2-6.2); RED CELL DISTRIBUTION WIDTH 17.1 % (9.0-15.0); WHITE BLOOD COUNT (AUTO) 8.7 K/uL (4.8-10.8)
[2023-01-18] MEDS: GEMFIBROZIL 600 MG TABLET (LOPID) PO SCH ×2 (06:05→17:49)
[2023-01-18] MEDS: NORMAL SALINE 5 ML DISP.SYRIN IVF SCH ×3 (06:05→20:26)
[2023-01-18] MEDS: LEVOTHYROXINE SODIUM 0.125 MG TABLET PO SCH (06:06)
[2023-01-18 06:22] LABS: ALANINE AMINOTRANSFERASE 7 U/L (12-78); ALBUMIN 2.2 g/dL (3.4-4.8); ANION GAP 5 (5-15); ASPARTATE AMINOTRANSFERASE 19 U/L (10-37); CALCIUM 8.8 mg/dL (8.4-11.0); CARBON DIOXIDE 35 mmol/L (23-29); CHLORIDE 104 mmol/L (98-107); CREATININE 1.21 mg/dL (0.55-1.30); GLUCOSE 81 mg/dL (74-106); PHOSPHORUS 3.8 mg/dL (2.7-4.5); POTASSIUM 3.8 mmol/L (3.5-5.1); SODIUM SERUM 144 mmol/L (136-145); TOTAL BILIRUBIN 0.3 mg/dL (0.0-1.0); TOTAL PROTEIN, SERUM 6.7 g/dL (6.4-8.3); UREA NITROGEN, BLOOD 60 mg/dL (8-21)
[2023-01-18] MEDS: ASCORBIC ACID 500 MG TABLET PO SCH (08:21)
[2023-01-18] MEDS: ENOXAPARIN SODIUM 40 MG/0.4 ML SYRINGE SUBCUT SCH (08:21)
[2023-01-18] MEDS: oxyBUTYnin chloride 5 MG TABLET PO SCH ×2 (08:22→20:26)
[2023-01-18] MEDS: MULTIVITAMINS TAB 1 TABLET PO SCH (08:22)
[2023-01-19] VITALS (27 sets, daily range): BP systolic 92–165; PULSE 65–95; RESP 18–26; TEMP 97.4–98.5; O2SAT 87–95
[2023-01-19] MEDS: HYDROcodone/ACETAMIN 5-325 MG TAB (NORCO/ VICODIN) PO PRN (01:34)
[2023-01-19] MEDS: ACETAMINOPHEN 325 MG TABLET PO PRN (01:34)
[2023-01-19] MEDS: LEVOTHYROXINE SODIUM 0.125 MG TABLET PO SCH (05:42)
[2023-01-19] MEDS: GEMFIBROZIL 600 MG TABLET (LOPID) PO SCH ×2 (05:42→17:37)
[2023-01-19] MEDS: NORMAL SALINE 5 ML DISP.SYRIN IVF SCH ×2 (05:42→21:59)
[2023-01-19 05:52] LABS: BASOPHILS % (AUTO) 0.3 % (0.0-2.0); EOSINOPHILS # (AUTO) 0.3 K/uL (0.0-0.4); EOSINOPHILS % (AUTO) 3.7 % (0.0-4.0); HEMATOCRIT 38.3 % (36-48); HEMOGLOBIN 11.7 g/dL (12.0-16.0); LYMPHOCYTES # (AUTO) 0.9 K/uL (1.0-5.5); LYMPHOCYTES % (AUTO) 11.5 % (20.5-51.5); MEAN CORPUSCULAR HEMOGLOBIN 26 pg (27-31); MEAN CORPUSCULAR HGB CONC 31 % (32-36); MEAN CORPUSCULAR VOLUME 85 fL (79.0-98.0); MONOCYTES # (AUTO) 0.9 K/uL (0.0-1.0); MONOCYTES % (AUTO) 10.8 % (1.7-9.3); NEUTROPHILS # (AUTO) 5.9 K/uL (1.8-7.7); NEUTROPHILS % (AUTO) 73.7 % (40.0-70.0); PLATELET COUNT (AUTO) 265 K/uL (130-430); RED BLOOD CELL COUNT(AUTO) 4.48 MIL/uL (4.2-6.2); RED CELL DISTRIBUTION WIDTH 17.4 % (9.0-15.0)
[2023-01-19 05:54] LABS: ERYTHROCYTE SEDIMENTATION RATE 73 MM/HR (0-20)
[2023-01-19 05:58] LABS: ANION GAP 4 (5-15); CALCIUM 9.1 mg/dL (8.4-11.0); CARBON DIOXIDE 36 mmol/L (23-29); CHLORIDE 105 mmol/L (98-107); GLUCOSE 85 mg/dL (74-106); POTASSIUM 3.9 mmol/L (3.5-5.1); SODIUM SERUM 145 mmol/L (136-145); UREA NITROGEN, BLOOD 60 mg/dL (8-21)
[2023-01-19] MEDS: oxyBUTYnin chloride 5 MG TABLET PO SCH ×2 (09:50→21:58)
[2023-01-19] MEDS: MULTIVITAMINS TAB 1 TABLET PO SCH (09:50)
[2023-01-19] MEDS: ASCORBIC ACID 500 MG TABLET PO SCH (09:51)
[2023-01-19] MEDS: ENOXAPARIN SODIUM 40 MG/0.4 ML SYRINGE SUBCUT SCH (09:51)
[2023-01-19] MEDS ORDERED: FUROSEMIDE 40 MG/4 ML VIAL IVP ONE (21:45)
[2023-01-19] MEDS ORDERED: POTASSIUM CHLORIDE 20 MEQ TAB.PRT.SR PO ONE (21:45)
[2023-01-20] VITALS (32 sets, daily range): BP systolic 15–157; PULSE 76–120; RESP 18–26; TEMP 97.3–99.8; O2SAT 90–95
[2023-01-20 04:59] LABS: BASOPHILS % (AUTO) 0.3 % (0.0-2.0); EOSINOPHILS # (AUTO) 0.3 K/uL (0.0-0.4); HEMATOCRIT 41.3 % (36-48); LYMPHOCYTES % (AUTO) 10.2 % (20.5-51.5); MEAN CORPUSCULAR HEMOGLOBIN 27 pg (27-31); MEAN CORPUSCULAR HGB CONC 32 % (32-36); MEAN CORPUSCULAR VOLUME 84 fL (79.0-98.0); MONOCYTES # (AUTO) 1.1 K/uL (0.0-1.0); MONOCYTES % (AUTO) 10.6 % (1.7-9.3); NEUTROPHILS # (AUTO) 7.5 K/uL (1.8-7.7); NEUTROPHILS % (AUTO) 75.9 % (40.0-70.0); PLATELET COUNT (AUTO) 298 K/uL (130-430); RED BLOOD CELL COUNT(AUTO) 4.92 MIL/uL (4.2-6.2); RED CELL DISTRIBUTION WIDTH 17.2 % (9.0-15.0)
[2023-01-20 05:23] LABS: ALANINE AMINOTRANSFERASE 14 U/L (12-78); ALBUMIN 2.5 g/dL (3.4-4.8); ANION GAP 3 (5-15); ASPARTATE AMINOTRANSFERASE 17 U/L (10-37); CALCIUM 9.4 mg/dL (8.4-11.0); CHLORIDE 100 mmol/L (98-107); CREATININE 1.03 mg/dL (0.55-1.30); GLUCOSE 97 mg/dL (74-106); POTASSIUM 3.5 mmol/L (3.5-5.1); SODIUM SERUM 143 mmol/L (136-145); TOTAL BILIRUBIN 0.6 mg/dL (0.0-1.0); TOTAL PROTEIN, SERUM 7.6 g/dL (6.4-8.3); UREA NITROGEN, BLOOD 46 mg/dL (8-21)
[2023-01-20 05:27] LABS: CARBON DIOXIDE 40 mmol/L (23-29)
[2023-01-20] MEDS: NORMAL SALINE 5 ML DISP.SYRIN IVF SCH ×3 (05:44→22:01)
[2023-01-20 05:57] LABS: ERYTHROCYTE SEDIMENTATION RATE 102 MM/HR (0-20)
[2023-01-20] MEDS: LEVOTHYROXINE SODIUM 0.125 MG TABLET PO SCH (08:24)
[2023-01-20] MEDS: GEMFIBROZIL 600 MG TABLET (LOPID) PO SCH ×3 (08:24→16:42)
[2023-01-20] MEDS: ACETAMINOPHEN 325 MG TABLET PO PRN (08:25)
[2023-01-20] MEDS: ASCORBIC ACID 500 MG TABLET PO SCH (08:25)
[2023-01-20] MEDS: oxyBUTYnin chloride 5 MG TABLET PO SCH ×2 (08:26→22:00)
[2023-01-20] MEDS: MULTIVITAMINS TAB 1 TABLET PO SCH (08:26)
[2023-01-20] MEDS: ENOXAPARIN SODIUM 40 MG/0.4 ML SYRINGE SUBCUT SCH (08:27)
[2023-01-20] MEDS: DILTIAZEM HCL 60 MG TABLET PO SCH ×2 (08:53→22:00)
[2023-01-20] MEDS ORDERED: FUROSEMIDE 40 MG/4 ML VIAL IVP ONE (12:45)
[2023-01-20 13:07] LABS: ABG O2 SAT% ESTIMATE 95.7 % (94.0-100.0); BLOOD GAS BASE EXCESS 14.4 mmol/L (-3.0-3.0); BLOOD GAS PH 7.436 (7.350-7.450); BLOOD GAS PO2 79.1 mmHg (75.0-100.0)
[2023-01-20 13:14] LABS: BLOOD GAS PCO2 63.8 mmHg (35.0-45.0)
[2023-01-20 13:15] LABS: ALLEN'S TEST POSITIVE (P)
[2023-01-20] MEDS: IPRATROPIUM/ALBUTEROL SULFATE 3 ML AMPUL.NEB (DUONEB) INH SCH ×2 (13:17→19:44)
[2023-01-21] VITALS (22 sets, daily range): BP systolic 99–144; PULSE 74–86; RESP 16–40; TEMP 97–98.8; O2SAT 90–98
[2023-01-21] MEDS: IPRATROPIUM/ALBUTEROL SULFATE 3 ML AMPUL.NEB (DUONEB) INH SCH ×4 (01:41→20:10)
[2023-01-21 04:25] LABS: ERYTHROCYTE SEDIMENTATION RATE 68 MM/HR (0-20)
[2023-01-21 04:32] LABS: BASOPHILS # (AUTO) 0.1 K/uL (0.0-0.2); BASOPHILS % (AUTO) 0.5 % (0.0-2.0); EOSINOPHILS # (AUTO) 0.3 K/uL (0.0-0.4); EOSINOPHILS % (AUTO) 2.6 % (0.0-4.0); HEMATOCRIT 41.2 % (36-48); HEMOGLOBIN 12.8 g/dL (12.0-16.0); LYMPHOCYTES # (AUTO) 1.3 K/uL (1.0-5.5); LYMPHOCYTES % (AUTO) 10.9 % (20.5-51.5); MEAN CORPUSCULAR HEMOGLOBIN 26 pg (27-31); MEAN CORPUSCULAR HGB CONC 31 % (32-36); MEAN CORPUSCULAR VOLUME 85 fL (79.0-98.0); MONOCYTES # (AUTO) 1.2 K/uL (0.0-1.0); NEUTROPHILS # (AUTO) 8.9 K/uL (1.8-7.7); PLATELET COUNT (AUTO) 318 K/uL (130-430); RED BLOOD CELL COUNT(AUTO) 4.86 MIL/uL (4.2-6.2); RED CELL DISTRIBUTION WIDTH 17.2 % (9.0-15.0); WHITE BLOOD COUNT (AUTO) 11.7 K/uL (4.8-10.8)
[2023-01-21 05:04] LABS: ALANINE AMINOTRANSFERASE 12 U/L (12-78); ALBUMIN 2.5 g/dL (3.4-4.8); ANION GAP 5 (5-15); ASPARTATE AMINOTRANSFERASE 20 U/L (10-37); CHLORIDE 97 mmol/L (98-107); CREATININE 1.31 mg/dL (0.55-1.30); GLUCOSE 96 mg/dL (74-106); POTASSIUM 3.2 mmol/L (3.5-5.1); SODIUM SERUM 143 mmol/L (136-145); TOTAL BILIRUBIN 0.7 mg/dL (0.0-1.0); TOTAL PROTEIN, SERUM 7.5 g/dL (6.4-8.3); UREA NITROGEN, BLOOD 50 mg/dL (8-21)
[2023-01-21 05:07] LABS: CARBON DIOXIDE 41 mmol/L (23-29)
[2023-01-21] MEDS: NORMAL SALINE 5 ML DISP.SYRIN IVF SCH ×3 (06:39→22:52)
[2023-01-21] MEDS: GEMFIBROZIL 600 MG TABLET (LOPID) PO SCH ×2 (06:40→13:18)
[2023-01-21] MEDS: LEVOTHYROXINE SODIUM 0.125 MG TABLET PO SCH (06:40)
[2023-01-21] MEDS: DILTIAZEM HCL 60 MG TABLET PO SCH ×2 (09:28→22:51)
[2023-01-21] MEDS: MULTIVITAMINS TAB 1 TABLET PO SCH (09:28)
[2023-01-21] MEDS: oxyBUTYnin chloride 5 MG TABLET PO SCH ×2 (09:28→22:51)
[2023-01-21] MEDS: ENOXAPARIN SODIUM 40 MG/0.4 ML SYRINGE SUBCUT SCH (09:29)
[2023-01-21] MEDS: ASCORBIC ACID 500 MG TABLET PO SCH (09:29)
[2023-01-21] MEDS ORDERED: POTASSIUM CHLORIDE 20 MEQ TAB.PRT.SR PO ONE (09:30)
[2023-01-22] VITALS (12 sets, daily range): BP systolic 110–124; PULSE 72–86; RESP 16–20; TEMP 97.7–98.7; O2SAT 89–98
[2023-01-22] MEDS: IPRATROPIUM/ALBUTEROL SULFATE 3 ML AMPUL.NEB (DUONEB) INH SCH ×4 (00:54→19:45)
[2023-01-22 05:24] LABS: BASOPHILS # (AUTO) 0.1 K/uL (0.0-0.2); BASOPHILS % (AUTO) 0.5 % (0.0-2.0); EOSINOPHILS # (AUTO) 0.4 K/uL (0.0-0.4); EOSINOPHILS % (AUTO) 3.6 % (0.0-4.0); HEMATOCRIT 39.5 % (36-48); HEMOGLOBIN 12.5 g/dL (12.0-16.0); LYMPHOCYTES # (AUTO) 1.1 K/uL (1.0-5.5); LYMPHOCYTES % (AUTO) 10.8 % (20.5-51.5); MEAN CORPUSCULAR HEMOGLOBIN 26 pg (27-31); MEAN CORPUSCULAR HGB CONC 32 % (32-36); MEAN CORPUSCULAR VOLUME 83 fL (79.0-98.0); MONOCYTES % (AUTO) 9.4 % (1.7-9.3); NEUTROPHILS # (AUTO) 7.8 K/uL (1.8-7.7); NEUTROPHILS % (AUTO) 75.7 % (40.0-70.0); PLATELET COUNT (AUTO) 276 K/uL (130-430); RED BLOOD CELL COUNT(AUTO) 4.74 MIL/uL (4.2-6.2); RED CELL DISTRIBUTION WIDTH 17.2 % (9.0-15.0); WHITE BLOOD COUNT (AUTO) 10.3 K/uL (4.8-10.8)
[2023-01-22 05:45] LABS: ANION GAP 4 (5-15); CARBON DIOXIDE 39 mmol/L (23-29); CHLORIDE 99 mmol/L (98-107); CREATININE 1.24 mg/dL (0.55-1.30); GLUCOSE 95 mg/dL (74-106); PHOSPHORUS 2.5 mg/dL (2.7-4.5); POTASSIUM 3.5 mmol/L (3.5-5.1); SODIUM SERUM 142 mmol/L (136-145); UREA NITROGEN, BLOOD 77 mg/dL (8-21)
[2023-01-22] MEDS: GEMFIBROZIL 600 MG TABLET (LOPID) PO SCH ×2 (06:12→17:07)
[2023-01-22] MEDS: LEVOTHYROXINE SODIUM 0.125 MG TABLET PO SCH (06:12)
[2023-01-22] MEDS: NORMAL SALINE 5 ML DISP.SYRIN IVF SCH ×2 (06:14→13:36)
[2023-01-22 06:32] LABS: ERYTHROCYTE SEDIMENTATION RATE 85 MM/HR (0-20)
[2023-01-22] MEDS: ASCORBIC ACID 500 MG TABLET PO SCH (08:56)
[2023-01-22] MEDS: oxyBUTYnin chloride 5 MG TABLET PO SCH ×2 (08:56→21:00)
[2023-01-22] MEDS: MULTIVITAMINS TAB 1 TABLET PO SCH (08:56)
[2023-01-22] MEDS: DILTIAZEM HCL 60 MG TABLET PO SCH ×2 (08:56→21:00)
[2023-01-22] MEDS: ENOXAPARIN SODIUM 40 MG/0.4 ML SYRINGE SUBCUT SCH (08:56)
[2023-01-22] MEDS ORDERED: NA PHOS 15 MM in NS 250 ML IV ONE (12:00)
[2023-01-23] VITALS (11 sets, daily range): BP systolic 120–148; PULSE 68–100; RESP 18–22; TEMP 96.2–98; O2SAT 90–97
[2023-01-23] MEDS: IPRATROPIUM/ALBUTEROL SULFATE 3 ML AMPUL.NEB (DUONEB) INH SCH ×4 (01:58→19:27)
[2023-01-23 05:25] LABS: BASOPHILS % (AUTO) 0.5 % (0.0-2.0); EOSINOPHILS # (AUTO) 0.4 K/uL (0.0-0.4); EOSINOPHILS % (AUTO) 4.4 % (0.0-4.0); HEMATOCRIT 39.7 % (36-48); HEMOGLOBIN 12.2 g/dL (12.0-16.0); LYMPHOCYTES # (AUTO) 1.1 K/uL (1.0-5.5); LYMPHOCYTES % (AUTO) 11.8 % (20.5-51.5); MEAN CORPUSCULAR HEMOGLOBIN 26 pg (27-31); MEAN CORPUSCULAR HGB CONC 31 % (32-36); MEAN CORPUSCULAR VOLUME 85 fL (79.0-98.0); MONOCYTES # (AUTO) 0.8 K/uL (0.0-1.0); MONOCYTES % (AUTO) 9.2 % (1.7-9.3); NEUTROPHILS # (AUTO) 6.7 K/uL (1.8-7.7); NEUTROPHILS % (AUTO) 74.1 % (40.0-70.0); PLATELET COUNT (AUTO) 279 K/uL (130-430); RED BLOOD CELL COUNT(AUTO) 4.69 MIL/uL (4.2-6.2); WHITE BLOOD COUNT (AUTO) 9.1 K/uL (4.8-10.8)
[2023-01-23 05:53] LABS: ALANINE AMINOTRANSFERASE 15 U/L (12-78); ALBUMIN 2.3 g/dL (3.4-4.8); ANION GAP 6 (5-15); ASPARTATE AMINOTRANSFERASE 19 U/L (10-37); CALCIUM 8.9 mg/dL (8.4-11.0); CARBON DIOXIDE 38 mmol/L (23-29); CHLORIDE 97 mmol/L (98-107); CREATININE 1.18 mg/dL (0.55-1.30); GLUCOSE 91 mg/dL (74-106); POTASSIUM 3.3 mmol/L (3.5-5.1); SODIUM SERUM 141 mmol/L (136-145); TOTAL BILIRUBIN 0.4 mg/dL (0.0-1.0); TOTAL PROTEIN, SERUM 7.1 g/dL (6.4-8.3); UREA NITROGEN, BLOOD 75 mg/dL (8-21)
[2023-01-23 06:04] LABS: ERYTHROCYTE SEDIMENTATION RATE 83 MM/HR (0-20)
[2023-01-23] MEDS: GEMFIBROZIL 600 MG TABLET (LOPID) PO SCH ×2 (06:26→17:29)
[2023-01-23] MEDS: LEVOTHYROXINE SODIUM 0.125 MG TABLET PO SCH (06:26)
[2023-01-23] MEDS: oxyBUTYnin chloride 5 MG TABLET PO SCH ×2 (09:00→20:32)
[2023-01-23] MEDS: DILTIAZEM HCL 60 MG TABLET PO SCH ×2 (09:00→20:33)
[2023-01-23] MEDS: MULTIVITAMINS TAB 1 TABLET PO SCH (09:00)
[2023-01-23] MEDS: ASCORBIC ACID 500 MG TABLET PO SCH (09:00)
[2023-01-23] MEDS ORDERED: KCL 20 mEq in 100 mL (PREMIX) 100 ML IV ONE (09:45)
[2023-01-23] MEDS: ENOXAPARIN SODIUM 40 MG/0.4 ML SYRINGE SUBCUT SCH (11:02)
[2023-01-23] MEDS: D5/0.45 NS 1,000 ML IV SCH ×2 (11:06→20:32)
[2023-01-24] VITALS (9 sets, daily range): BP systolic 107–129; PULSE 69–92; RESP 18–20; TEMP 97.1–98.3; O2SAT 78–95
[2023-01-24] MEDS: IPRATROPIUM/ALBUTEROL SULFATE 3 ML AMPUL.NEB (DUONEB) INH SCH ×4 (01:08→19:39)
[2023-01-24 05:56] LABS: BASOPHILS % (AUTO) 0.3 % (0.0-2.0); EOSINOPHILS # (AUTO) 0.3 K/uL (0.0-0.4); EOSINOPHILS % (AUTO) 3.9 % (0.0-4.0); HEMATOCRIT 39.2 % (36-48); HEMOGLOBIN 11.9 g/dL (12.0-16.0); LYMPHOCYTES # (AUTO) 0.9 K/uL (1.0-5.5); MEAN CORPUSCULAR HEMOGLOBIN 26 pg (27-31); MEAN CORPUSCULAR HGB CONC 31 % (32-36); MEAN CORPUSCULAR VOLUME 84 fL (79.0-98.0); MONOCYTES # (AUTO) 0.8 K/uL (0.0-1.0); MONOCYTES % (AUTO) 9.5 % (1.7-9.3); NEUTROPHILS # (AUTO) 6.8 K/uL (1.8-7.7); NEUTROPHILS % (AUTO) 76.3 % (40.0-70.0); PLATELET COUNT (AUTO) 294 K/uL (130-430); RED BLOOD CELL COUNT(AUTO) 4.66 MIL/uL (4.2-6.2); RED CELL DISTRIBUTION WIDTH 17.3 % (9.0-15.0)
[2023-01-24] MEDS: LEVOTHYROXINE SODIUM 0.125 MG TABLET PO SCH (06:08)
[2023-01-24] MEDS: GEMFIBROZIL 600 MG TABLET (LOPID) PO SCH ×2 (06:08→18:14)
[2023-01-24] MEDS: D5/0.45 NS 1,000 ML IV SCH (06:09)
[2023-01-24 06:14] LABS: ANION GAP 6 (5-15); CALCIUM 8.5 mg/dL (8.4-11.0); CARBON DIOXIDE 36 mmol/L (23-29); CHLORIDE 100 mmol/L (98-107); CREATININE 0.92 mg/dL (0.55-1.30); GLUCOSE 100 mg/dL (74-106); POTASSIUM 3.3 mmol/L (3.5-5.1); SODIUM SERUM 142 mmol/L (136-145); UREA NITROGEN, BLOOD 44 mg/dL (8-21)
[2023-01-24 06:47] LABS: ERYTHROCYTE SEDIMENTATION RATE 81 MM/HR (0-20)
[2023-01-24] MEDS: MULTIVITAMINS TAB 1 TABLET PO SCH (08:51)
[2023-01-24] MEDS: ENOXAPARIN SODIUM 40 MG/0.4 ML SYRINGE SUBCUT SCH (08:51)
[2023-01-24] MEDS: oxyBUTYnin chloride 5 MG TABLET PO SCH (08:52)
[2023-01-24] MEDS: ASCORBIC ACID 500 MG TABLET PO SCH (08:52)
[2023-01-24] MEDS: DILTIAZEM HCL 60 MG TABLET PO SCH (08:52)
[2023-01-24] MEDS ORDERED: POTASSIUM CHLORIDE 20 MEQ TAB.PRT.SR PO ONE (11:15)
[2023-01-24] MEDS ORDERED: LEVO-62 PO (17:55)
[2023-01-24] MEDS ORDERED: DILT60TA3 PO (17:55)
[2023-01-24] MEDS ORDERED: LOVI40 SUBCUT (17:55)
[2023-01-24] MEDS ORDERED: OXYB5TAB16 PO (17:55)
== END 2023-01-24 21:45 | DRG 871 ==
LOC: SED 12:23 → STU 14:42 → SIC 20:59 → STU 01-21 16:59
PROVIDERS: ADMIT Preventive Medicine Preventive Medicine/Occupational Environmental Medicine; ATTEND Preventive Medicine Preventive Medicine/Occupational Environmental Medicine
PROC: 5A09457 Assistance with Respiratory Ventilation, 24-96 Consecutive Hours, Continuous Positive Airway Pressure (ICD-10-PCS; principal; 2023-01-14)
PROC: 5A09357 Assistance with Respiratory Ventilation, Less than 24 Consecutive Hours, Continuous Positive Airway Pressure (ICD-10-PCS; 2023-01-15)
PROC: 05HY33Z Insertion of Infusion Device into Upper Vein, Percutaneous Approach (ICD-10-PCS; 2023-01-15)
PROC: B54MZZA Ultrasonography of Right Upper Extremity Veins, Guidance (ICD-10-PCS; 2023-01-15)
PROC: 5A0955A Assistance with Respiratory Ventilation, Greater than 96 Consecutive Hours, High Flow/Velocity Cannula (ICD-10-PCS; 2023-01-16)
PROC: 5A09557 Assistance with Respiratory Ventilation, Greater than 96 Consecutive Hours, Continuous Positive Airway Pressure (ICD-10-PCS; 2023-01-19)
DX: A41.9 Sepsis, unspecified organism (principal); G93.41 Metabolic encephalopathy; J69.0 Pneumonitis due to inhalation of food and vomit; J18.9 Pneumonia, unspecified organism; N17.0 Acute kidney failure with tubular necrosis; J96.01 Acute respiratory failure with hypoxia; J96.02 Acute respiratory failure with hypercapnia; I50.33 Acute on chronic diastolic (congestive) heart failure; Z68.43 Body mass index [BMI] 50.0-59.9, adult; J44.0 Chronic obstructive pulmonary disease with (acute) lower respiratory infection; I11.0 Hypertensive heart disease with heart failure; D64.9 Anemia, unspecified; E03.9 Hypothyroidism, unspecified; E66.01 Morbid (severe) obesity due to excess calories; E78.5 Hyperlipidemia, unspecified; E83.39 Other disorders of phosphorus metabolism; E87.6 Hypokalemia; E88.09 Other disorders of plasma-protein metabolism, not elsewhere classified; F79 Unspecified intellectual disabilities; Z20.822 Contact with and (suspected) exposure to COVID-19; I27.20 Pulmonary hypertension, unspecified; R32 Unspecified urinary incontinence; E11.9 Type 2 diabetes mellitus without complications; Z96.651 Presence of right artificial knee joint; I49.9 Cardiac arrhythmia, unspecified; Z88.1 Allergy status to other antibiotic agents
CPT/HCPCS: 36415; 36600; 71045; 80048; 80053; 82550; 82803; 83605; 83735; 83880; 84100; 84484; 85025; 85610-TC; 85651-TC; 85730-TC; 87040; 87081; 87101; 87205-TC; 92610-GN; 93005; 94640; 94660; 94760; 96374; 97110-GP; 97163-GP; 97530-GP; 99285; C1751; G0378; J1650; J1940; J1956; J3480; J7030; J7040; J7050; J7060